=== PATIENT | female | born 1970 | race Caucasian/White ===

== ENCOUNTER 2017-03-24 18:30 | Emergency (ER) | payer BC, OTHER ==
[~2017-03-24] VITALS: Ht 167.6 cm; Wt 55.3 kg
[2017-03-24] MEDS ORDERED: RX-GENTAMICIN 0.3% OP OINT 3.5 GM TUBE OP STA (18:55)
[2017-03-24] MEDS ORDERED: LEVO75TA6 (18:58)
[2017-03-24] MEDS ORDERED: FLUORESCEIN (FLUOR-I-STRIPS) 1 MG STRP OU ONE (19:00)
[2017-03-24] MEDS ORDERED: TETRACAINE 0.5% OPHTH SOLN 4 ML BTL (SINGLE DOSE ONLY) OP ONE (19:00)
[2017-03-24] MEDS ORDERED: RX-HYDROCODONE/APAP 5/325 MG #4 TAB PK PO PRN (19:00)
[2017-03-24] MEDS ORDERED: BSS 15 ML IR ONE (19:00)
--- NOTE | 2017-03-24 19:02 | ED EENT ---
History of Present Illness General Chief Complaint: Eye Problems Stated Complaint: R EYE INJ Nursing Triage Note: AMB TO ROOM WAS USING A NEWSPAPER TO SWAT A FLY HIT HERSELF IN R EYE. Source: patient Exam Limitations: no limitations History of Present Illness Time seen by provider: 18:58 Initial Comments To ER with right eye pain. 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 Today she was smacking fly with a rolled up newspaper. Due to her baseline poor vision in the right eye she was unable to see how close the newspaper was in proximity to her right eye and will bring it back to swimming she scraped the right eye. Since this morning she's had foreign body sensation and constant tearing of the right eye. Timing/Duration: abrupt Location: eye (R) Allergies and Home Medications Allergies Coded Allergies: No Known Drug Allergies (Unverified , 03/24/17) Home Medications Levothyroxine Sodium 75 Mcg Tablet, #30 (Reported) Review of Systems Constitutional: see HPI Eyes: No Symptoms Reported Ears: No Symptoms Reported Nose: no symptoms reported Mouth: no symptoms reported Throat: no symptoms reported Respiratory: see HPI Cardiovascular: no symptoms reported Musculoskeletal: no symptoms reported Neurological: No Symptoms Reported Hematologic/Lymphatic: No Symptoms Reported Immunological/Allergic: no symptoms reported Past [id number]-Ddnnce-Rqqpmw Hx Patient Social History Alcohol Use: Occasionally Uses Recreational Drug Use: No Smoking Status: Never a Smoker Recent Foreign Travel: No Contact w/Someone Who Travel: No Recent Infectious Disease Expo: No Surgeries Surgeries: Hysterectomy Endocrine Endocrine Disorders: Hypothyroidsim Physical Exam Vital Signs Vital Sign - Last 12Hours 03/24/17 18:36 Temp 98.0 Pulse 74 Resp 18 B/P (MAP) 118/89 General Appearance: WD/WN, no apparent distress Eyes: right eye corneal abrasion (1.5 x 2.5 cm oblong corneal abrasions superficial in nature to the 3 o'clock position of the right eye.), left eye normal inspection, bilateral eye EOMI, bilateral eye PERRL Ears: bilateral ear TM normal, bilateral ear auricle normal, bilateral ear canal normal Mouth/Throat: normal mouth inspection, pharynx normal Neck: non-tender, full range of motion Respiratory: normal breath sounds, no respiratory distress, no accessory muscle use Gastrointestinal: normal bowel sounds, non tender, soft Neurologic/Psychiatric: alert, normal mood/affect, oriented x 3 Skin: normal color, warm/dry She had immediate relief of pain with the application of tetracaine eye drops. As such, I will send her home with these to use one drop every 2 hours as needed for pain not to be used for longer than 12 hours as recent studies within the past few years have actually proven this to be safe for short-term use despite concern for delayed healing on previous animal studies Progress/Results/Core Measures Results/Orders My Orders Orders - BETO CALVO APRN Tetracaine 0.5% Ophth Vicenta Sdv (Tetracai (03/24/17 19:00) Rx-Gentamicin Ophth Oint (Rx-Gentamicin (03/24/17 18:55) Rx-Hydrocodone/Apap 5-325 Mg (Rx-Vicodin (03/24/17 19:00) Fluorescein Strips ([id number]) (03/24/17 19:00) Balanced Salt Irrigation Soln (Bss Irrig (03/24/17 19:00) Vital Signs/I&O Vital Sign - Last 12Hours 03/24/17 18:36 Temp 98.0 Pulse 74 Resp 18 B/P (MAP) 118/89 Blood Pressure Mean: 99 Departure Impression Impression: Primary Impression: Right cornea abrasion Disposition: 01 HOME, SELF-CARE Condition: Stable Departure-Patient Inst. Decision time for Depature: 19:01 Referrals: SAAD WELCH OD NO,LOCAL PHYSICIAN (PCP) Primary Care Physician Patient Instructions: Corneal Abrasion (DC) Add. Discharge Instructions: 1. Use one drop of the tetracaine eyedrops for pain relief every 2 hours as needed for pain. Do not use this for longer than 12 hours. This would mean do not use this beyond 7 a.m. tomorrow morning. If you're not having significant improvement in pain by this time tomorrow evening he should follow-up with your eye doctor or our local light doctor, Dr. Welch. Apply the antibiotic ointment just inside the lower eyelid 1/2 inch strip 3 times a day for 3 days. All discharge instructions reviewed with patient and/or family. Voiced understanding. BETO CALVO APRN Mar 24, 2017 19:02
[2017-03-24 19:07] VITALS: BP 118/89
== END 2017-03-24 19:07 | disposition home or self-care (01) ==
LOC: ER 18:33
DX: S05.01XA Injury of conjunctiva and corneal abrasion without foreign body, right eye, initial encounter (principal); E03.9 Hypothyroidism, unspecified; X58.XXXA Exposure to other specified factors, initial encounter
CPT/HCPCS: 99282